=== PATIENT | male | born 1995 | race American Indian/Alaskan Native ===

== ENCOUNTER 2017-03-01 23:38 | Inpatient (IN) | payer MEDICAID ==
[2017-03-01 23:53] VITALS: BMI 27.3
[2017-03-02 00:28] VITALS: O2SAT 97
[2017-03-02 00:37] LABS: BASO # 0.04 K/mm3 (0.0-2.0); BASO % 0.6 % (0.0-3.0); EOS # 0.1 (0.0-0.7); EOS % 1.2 % (1.5-5.0); GRAN # 3.42 (1.4-6.5); GRAN % 50.7 % (50.0-68.0); HEMOGLOBIN 12.9 gm/dL (14.0-18.0); LYMPH # 2.4 (1.2-3.4); LYMPH % 36.2 % (22.0-35.0); MEAN CELL VOLUME 80.1 fL (80.0-105.0); MEAN CORPUSCULAR HEMOGLOBIN 26.8 pg (25.0-35.0); MEAN CORPUSCULAR HGB CONC 33.4 g/dl (31.0-37.0); MEAN PLATELET VOLUME 9.7 fl (7.0-11.0); MONO # 0.8 (0.1-0.6); MONO % 11.3 % (1.0-6.0); PLATELET COUNT 183 10^3/uL (120.0-450.0); RBC 4.82 10^6/uL (3.5-6.1); RED CELL DISTRIBUTION WIDTH 14.7 % (11.5-14.5); WHITE BLOOD COUNT 6.7 10^3/ul (4.5-11.0)
[2017-03-02 00:41] LABS: ALB/GLOB RATIO 1.3 (1.1-1.8); ALBUMIN 4.2 g/dL (3.0-4.8); ALT/SGPT 89 U/L (7-56); AST/SGOT 41 U/L (15-59); BLOOD UREA NITROGEN 17 mg/dL (7-21); GFR AFRICAN-AMERICAN > 60; GFR NON-AFRICAN AMERICAN > 60
[2017-03-02 00:43] LABS: SALICYLATE < 1 mg/dL (2.0-20.0)
--- NOTE | 2017-03-02 00:53 | ED PDOC ---
Arrival/HPI - General Chief Complaint: Psychiatric Evaluation Time Seen by Provider: 03/01/17 23:42 Historian: Patient - History of Present Illness Narrative History of Present Illness (Text): 03/02/17 00:54 A 21 year old male presents to the emergency department with suicidal ideation for the past several weeks. Patients states he wants to jump in front of traffic. Patient is compliant with medications. Denies any homicidal ideation, hallucinations, any physical complaints. Denies smoking, drinking and alcohol use. Time/Duration: Other (several weeks) Symptom Onset: Sudden Symptom Course: Unchanged Activities at Onset: Rest Context: Home Past Medical History - Provider Review Nursing Documentation Reviewed: Yes - Cardiac Hx Cardiac Disorders: No - Pulmonary Hx Respiratory Disorders: No - Neurological Hx Neurological Disorder: No - HEENT Hx HEENT Disorder: No - Renal Hx Renal Disorder: No - Endocrine/Metabolic Hx Endocrine Disorders: No - Hematological/Oncological Hx Blood Disorders: No - Integumentary Hx Dermatological Disorder: No - Musculoskeletal/Rheumatological Hx Musculoskeletal Disorders: No - Gastrointestinal Hx Gastrointestinal Disorders: No - Genitourinary/Gynecological Hx Genitourinary Disorders: No - Psychiatric Hx Psychophysiologic Disorder: No Hx Substance Use: No - Anesthesia Hx Anesthesia: No Family/Social History - Physician Review Nursing Documentation Reviewed: Yes Family/Social History: No Known Family HX Smoking Status: Light Smoker < 10 Cigarettes Daily Hx Alcohol Use: Yes Frequency of alcohol use: Socially Hx Substance Use: No Allergies/Home Meds Allergies/Adverse Reactions: Allergies shellfish derived Allergy (Verified 03/01/17 23:53) RASH Home Medications: Home Meds Medication Instructions Recorded Confirmed Citalopram Hydrobromide [Celexa] 20 mg PO DAILY 03/01/17 03/01/17 Methylphenidate HCl [Concerta] 54 mg PO DAILY 03/01/17 03/01/17 Montelukast [Singulair] 10 mg PO DAILY 03/01/17 03/01/17 Prazosin HCL [Minipress] 10 mg PO DAILY 03/01/17 03/01/17 Risperidone [Risperdal] 2 mg PO DAILY 03/01/17 03/02/17 traZODone [Desyrel] 50 mg PO DAILY 03/01/17 03/02/17 Review of Systems - Physician Review All systems were reviewed & negative as marked: Yes - Review of Systems Constitutional: absent: Fevers Respiratory: absent: SOB Psychiatric: Suicidal Ideation. absent: Other (homicial ideation, hallucinations) Physical Exam Vital Signs Reviewed: Yes Vital Signs Temp Pulse Resp BP Pulse Ox 03/02/17 00:28 97.9 F 69 18 125/50 L 97 Temperature: Afebrile Blood Pressure: Hypotensive Pulse: Regular Respiratory Rate: Normal Appearance: Positive for: Well-Appearing, Non-Toxic, Comfortable Pain Distress: None Mental Status: Positive for: Alert and Oriented X 3 - Systems Exam Head: Present: Atraumatic, Normocephalic Pupils: Present: PERRL Extroacular Muscles: Present: EOMI Conjunctiva: Present: Normal Mouth: Present: Moist Mucous Membranes Neck: Present: Normal Range of Motion Respiratory/Chest: Present: Clear to Auscultation, Good Air Exchange. No: Respiratory Distress, Accessory Muscle Use Cardiovascular: Present: Regular Rate and Rhythm, Normal S1, S2. No: Murmurs Abdomen: Present: Normal Bowel Sounds. No: Tenderness, Distention, Peritoneal Signs Back: Present: Normal Inspection Upper Extremity: Present: Normal Inspection. No: Cyanosis, Edema Lower Extremity: Present: Normal Inspection. No: Edema Neurological: Present: GCS=15, CN II-XII Intact, Speech Normal Skin: Present: Warm, Dry, Normal Color. No: Rashes Psychiatric: Present: Alert, Oriented x 3, Normal Concentration, Suicidal Ideation. No: Homicidal Ideation Medical Decision Making ED Course and Treatment: 03/02/17 00:49 Impression: A 21 year old male with suicidal ideation. Plan: -- EKG -- chest xray -- labs -- Urinalysis -- Reassess and disposition Progress Notes: EKG: Ordered, reviewed, and independently interpreted the EKG. Rate : 76 BPM Rhythm : NSR Interpretation : Normal intervals, normal axis Comparison : No previous EKG for comparison. - Lab Interpretations Lab Results: 03/02/17 00:10 03/02/17 00:10 Lab Results 03/02/17 00:16: Urine Opiates Screen Negative, Urine Methadone Screen Negative, Ur Barbiturates Screen Negative, Ur Phencyclidine Scrn Negative, Ur Amphetamines Screen Negative, U Benzodiazepines Scrn Negative, U Oth Cocaine Metabols Negative, U Cannabinoids Screen Negative 03/02/17 00:16: Urine Color Yellow, Urine Appearance Clear, Urine pH 6.0, Ur Specific [place] >= 1.030, Urine Protein Trace H, Urine Glucose (UA) Negative, Urine Ketones Negative, Urine Blood Negative, Urine Nitrate Negative, Urine Bilirubin Negative, Urine Urobilinogen 1.0 H, Ur Leukocyte Esterase Negative, Urine RBC 0 - 2, Urine WBC 0 - 2, Ur Epithelial Cells 0 - 2, Calcium Oxalate Crystal Trace, Urine Bacteria Mod 03/02/17 00:10: Alcohol, Quantitative < 10 03/02/17 00:10: Salicylates < 1 L, Acetaminophen < 10.0 L 03/02/17 00:10: Sodium 142, Potassium 3.5 L, Chloride 107, Carbon Dioxide 22, Anion Gap 17, BUN 17, Creatinine 0.8, Est GFR ( Amer) > 60, Est GFR (Non- Af Amer) > 60, Random Glucose 90, Calcium 9.0, Total Bilirubin 0.8, AST 41, ALT 89 H, Alkaline Phosphatase 28 L, Total Protein 7.5, Albumin 4.2, Globulin 3.3, Albumin/Globulin Ratio 1.3 03/02/17 00:10: WBC 6.7, RBC 4.82, Hgb 12.9 L, Hct 38.6 L, MCV 80.1, MCH 26.8, MCHC 33.4, RDW 14.7 H, Plt Count 183, MPV 9.7, Gran % 50.7, Lymph % (Auto) 36.2 H, [place] % (Auto) 11.3 H, Eos % (Auto) 1.2 L, Baso % (Auto) 0.6, Gran # 3.42, Lymph # 2.4, [place] # 0.8 H, Eos # 0.1, Baso # 0.04 I have reviewed the lab results: Yes - RAD Interpretation Radiology Orders: 03/01/17 23:56 CHEST ONE VIEW [RAD] Stat - EKG Interpretation Interpreted by ED Physician: Yes Type: 12 lead EKG - Medication Orders Current Medication Orders: Acetaminophen (Tylenol 325mg Tab) 650 mg PO Q4H PRN PRN Reason: Pain, Mild (1-3) Al Hydrox/Mg Hydrox/Simethicone (Maalox Plus 30 Ml) 30 ml PO DAILY PRN PRN Reason: Upset Stomach Magnesium Hydroxide (Milk Of Magnesia) 30 ml PO DAILY PRN PRN Reason: Constipation - Scribe Statement The provider has reviewed the documentation as recorded by the Scribe Susie Steele Provider Scribe Attestation: All medical record entries made by the Scribe were at my direction and personally dictated by me. I have reviewed the chart and agree that the record accurately reflects my personal performance of the history, physical exam, medical decision making, and the department course for this patient. I have also personally directed, reviewed, and agree with the discharge instructions and disposition. Disposition/Present on Arrival - Present on Arrival Any Indicators Present on Arrival: No History of DVT/PE: No History of Uncontrolled Diabetes: No Urinary Catheter: No History of Decub. Ulcer: No History Surgical Site Infection Following: None - Disposition Have Diagnosis and Disposition been Completed?: Yes Diagnosis: Depression Disposition: HOSPITALIZED Disposition Time: 03:30 Condition: STABLE
[2017-03-02 00:58] LABS: URINE BILIRUBIN NEGATIVE (NEGATIVE); URINE BLOOD NEGATIVE (NEGATIVE); URINE GLUCOSE (UA) NEGATIVE (NEGATIVE); URINE LEUKOCYTE ESTERASE NEGATIVE Leu/uL (NEGATIVE); URINE NITRATE NEGATIVE (NEGATIVE); URINE PROTEIN TRACE mg/dL (<30 mg/dL)
[2017-03-02 00:59] LABS: ACETAMINOPHEN < 10.0 ug/ml (10.0-20.0)
[2017-03-02 00:59] LABS: URINE APPEARANCE CLEAR (CLEAR); URINE COLOR YELLOW (YELLOW)
[2017-03-02 01:03] LABS: BARBITURATES, UR NEGATIVE (NEGATIVE); BENZODIAZEPINES, UR NEGATIVE (NEGATIVE); OPIATES, UR NEGATIVE (NEGATIVE); PHENCYCLIDINE, UR NEGATIVE (NEGATIVE)
[2017-03-02 01:22] LABS: URINE BACTERIA MOD (NEG); URINE CALCIUM OXALATE CRYSTALS TRACE /hpf; URINE EPITHELIAL CELLS 0 - 2 /hpf (0-5); URINE RBC 0 - 2 /hpf (0-2); URINE WBC 0 - 2 /hpf (0-6)
[2017-03-02] MEDS ORDERED: Alum-Mag Hydrox-Simethicone Susp (30 mL) PO PRN (04:21)
[2017-03-02] MEDS ORDERED: Magnesium Hydroxide Susp 30 ml UD PO PRN (04:21)
--- NOTE | 2017-03-02 05:10 | PCM.BM ---
<Dhruv Milton - Last Filed: 03/02/17 05:08> Treatment Plan Problems - Problems identified on initial assessmt suicidal ideation Date Initiated: 03/02/17 Time Initiated: 04:00 Assessment reference: NA Status: Active depression Date Initiated: 03/02/17 Time Initiated: 04:00 Assessment reference: HP Status: Referred Treatment assets and liabiliti Patient Assests: cooperative, self-reliant, ADL independent, physically healthy , cognitively intact Patient Liabilities: poor support system, relationship conflicts - Milieu Protocol Maintain good personal hygiene: daily Encourage regular showers, daily Remind patient to perform daily oral care Maintain personal safety: every shift Educate patient to report safety concerns to staff, every shift Monitor environment for contraband/sharps Medication safety: Monitor for expected outcome, potential side effects: every shift, Assess barriers to learning: every shift, Assess readiness for medication education: every shift Family Contact Family involvement: Famliy/SO not involved - Goals for Treatment Patient goals for treatment: "work on my depression" <Casandra eJff - Last Filed: 03/02/17 11:44> - Diagnosis (1) MDD (major depressive disorder) Status: Acute Interventions: 03/02/17 11:45 Psychoeducation Psychopharmacology/adjustment of medications as needed/ monitoring possible side effects Evaluate pt on daily basis Compliance with medications and follow up appointments Suicide and homicide risk assessment and prevention Relapse prevention Reduction of symptoms Improve functional status Family intervention As outpatient: cognitive behavioral therapy/interpersonal psychotherapy/ psychodynamic psychotherapy/problem-solving therapy (2) PTSD (post-traumatic stress disorder) Status: Acute Interventions: 03/02/17 11:45 Psychoeducation Psychopharmacology/adjustment of medications as needed/ monitoring possible side effects Evaluate pt on daily basis Compliance with medications and follow up appointments Suicide and homicide risk assessment and prevention, coping strategies, safety plan Reduction of symptoms Relaxation techniques and breathing exercises Improve functional status Family intervention As outpatient: cognitive behavioral therapy (3) ADHD Status: Acute Interventions: 03/02/17 11:45 Psychoeducation Psychopharmacology/adjustment of medications as needed/ monitoring possible side effects Evaluate pt on daily basis Compliance with medications and follow up appointments Improve functional status Family intervention <Cirilo Brar - Last Filed: 03/04/17 08:36> Discharge/Continuing Care - Education Needs Education Needs: Patient Medication, Patient Diagnosis/Disease Process, Patient Coping Skills, Patient Placement options, Patient Community resources, Patient Aftercare Safety Plan <Nita Ferreira - Last Filed: 03/04/17 09:02> Family Contact Family contact: Patient agrees to contact Discharge/Continuing Care - Education Needs Education Needs: Patient Medication, Patient Diagnosis/Disease Process, Patient Coping Skills, Patient Placement options, Patient Community resources, Patient Aftercare Safety Plan
[2017-03-02 06:42] VITALS: RESP 20
[2017-03-02] MEDS ORDERED: Potassium Chloride 40 mEq/30 ml LIQ UD PO ONE (06:58)
[2017-03-02 07:51] LABS: GLUCOSE,FASTING 85 mg/dL (65-110); HDL CHOLESTEROL 29 mg/dL (29-60)
[2017-03-02 08:02] LABS: LDL CHOLESTEROL 97 mg/dL (0-129)
--- NOTE | 2017-03-02 10:02 | CARD ---
APPROVED REPORT EKG Measurement Heart [id number] <Conclusion> Normal sinus rhythm with sinus arrhythmia Normal ECG
--- NOTE | 2017-03-02 10:52 | CP.PCM.CON ---
<BrendaMerlin - Last Filed: 03/02/17 10:46> History of Present Illness - History of Present Illness History of Present Illness: Medicine Consult Note: 21 M with pmh of depression and anxiety presents with suicidal ideation. Pt states that he lives with his mother at home and "she makes him depressed" specially since there is alot going on at home. He states that he gets thought of running into traffic to end his life but denies acting on it. He states that he is compliant with his psych meds at home. He denies any medical problems. Denies any fever, chills, proctor, dizziness, sob, cp, abd pain, n/v/d. PMH: Depression and anxiety PSH: L eye sx (6yo) Med: refer to [facility] ALL: shellfish SH: lives at home with mom, Denies any smoking, drinking, drugs. FH: Denies Review of Systems - Review of Systems All systems: reviewed and no additional remarkable complaints except (HPI) Past Patient History - Past Social History Smoking Status: Light Smoker < 10 Cigarettes Daily - CARDIAC Hx Cardiac Disorders: No - PULMONARY Hx Respiratory Disorders: No - NEUROLOGICAL Hx Neurological Disorder: No - HEENT Hx HEENT Problems: No - RENAL Hx Chronic Kidney Disease: No - ENDOCRINE/METABOLIC Hx Endocrine Disorders: No - HEMATOLOGICAL/ONCOLOGICAL Hx Blood Disorders: No - INTEGUMENTARY Hx Dermatological Problems: No - MUSCULOSKELETAL/RHEUMATOLOGICAL Hx Musculoskeletal Disorders: No - GASTROINTESTINAL Hx Gastrointestinal Disorders: No - GENITOURINARY/GYNECOLOGICAL Hx Genitourinary Disorders: No - PSYCHIATRIC Hx Psychophysiologic Disorder: No Hx Substance Use: No - SURGICAL HISTORY Hx Surgeries: No - ANESTHESIA Hx Anesthesia: No Meds Allergies/Adverse Reactions: Allergies Allergy/AdvReac Type Severity Reaction Status Date / Time shellfish derived Allergy RASH Verified 03/02/17 05:49 - Medications Medications: Current Medications Acetaminophen (Tylenol 325mg Tab) 650 mg PO Q4H PRN PRN Reason: Pain, Mild (1-3) Al Hydrox/Mg Hydrox/Simethicone (Maalox Plus 30 Ml) 30 ml PO DAILY PRN PRN Reason: Upset Stomach Lorazepam (Ativan) 0.5 mg PO TID PRN; Protocol PRN Reason: Anxiety Magnesium Hydroxide (Milk Of Magnesia) 30 ml PO DAILY PRN PRN Reason: Constipation Montelukast Sodium (Singulair) 10 mg PO HS NANY Risperidone (Risperdal Tab) 1 mg PO AMHS NANY PRN Reason: Protocol Last Admin: 03/02/17 10:14 Dose: 1 mg Ziprasidone (Geodon Cap) 20 mg PO Q6H PRN; Protocol PRN Reason: psychosis/agitation Ziprasidone (Geodon Inj) 20 mg IM Q6H PRN; Protocol PRN Reason: severe agitation Physical Exam - Constitutional Appears: No Acute Distress - Head Exam Head Exam: ATRAUMATIC, NORMAL INSPECTION, NORMOCEPHALIC - Eye Exam Eye Exam: EOMI, Normal appearance, PERRL Pupil Exam: NORMAL ACCOMODATION, PERRL - ENT Exam ENT Exam: Mucous Membranes Moist, Normal Exam - Neck Exam Neck exam: Positive for: Normal Inspection - Respiratory Exam Respiratory Exam: Clear to Auscultation Bilateral, NORMAL BREATHING PATTERN. absent: Wheezes - Cardiovascular Exam Cardiovascular Exam: REGULAR RHYTHM, RRR, +S1, +S2 - GI/Abdominal Exam GI & Abdominal Exam: Normal Bowel Sounds, Soft. absent: Tenderness - Extremities Exam Extremities exam: Positive for: normal inspection. Negative for: calf tenderness - Back Exam Back exam: NORMAL INSPECTION - Neurological Exam Neurological exam: Alert, CN II-XII Intact, Oriented x3 - Psychiatric Exam Psychiatric exam: Depressed, Normal Affect, Normal Mood - Skin Skin Exam: Dry, Intact, Normal Color, Warm Results - Vital Signs Recent Vital Signs: Last Vital Signs Temp 98.1 F 03/02/17 04:00 Pulse 76 03/02/17 04:00 Resp 20 03/02/17 04:00 BP 117/68 03/02/17 04:00 Pulse Ox 97 03/02/17 00:28 - Labs Result Diagrams: 03/02/17 00:10 03/02/17 00:10 Labs: Laboratory Results - last 24 hr 03/02/17 03/02/17 07:00 07:00 Fasting Glucose 85 Triglycerides 106 Cholesterol 146 LDL Cholesterol Direct 97 HDL Cholesterol 29 TSH 3rd Generation 0.44 L Assessment & Plan - Assessment and Plan (Free Text) Assessment: 21 M with pmh of depression and anxiety presents with suicidal ideation. 1. Depression and anxiety - Psych meds and management as per psychiatry 2. Hypokalemia - K of 3.5 - Repleted with Kcl 40meq - Repeat lab 3. Elevated ALT - Repeat labs to see if trending down 4. GI/DVT ppx - Reg diet and ambulating Case and plan was reviewed and discussed in detail with Dr Jain. <Manpreet Jain - Last Filed: 03/02/17 12:43> Meds - Medications Medications: Current Medications Acetaminophen (Tylenol 325mg Tab) 650 mg PO Q4H PRN PRN Reason: Pain, Mild (1-3) Al Hydrox/Mg Hydrox/Simethicone (Maalox Plus 30 Ml) 30 ml PO DAILY PRN PRN Reason: Upset Stomach Lorazepam (Ativan) 0.5 mg PO TID PRN; Protocol PRN Reason: Anxiety Magnesium Hydroxide (Milk Of Magnesia) 30 ml PO DAILY PRN PRN Reason: Constipation Montelukast Sodium (Singulair) 10 mg PO HS NANY Risperidone (Risperdal Tab) 1 mg PO AMHS NANY PRN Reason: Protocol Last Admin: 03/02/17 10:14 Dose: 1 mg Ziprasidone (Geodon Cap) 20 mg PO Q6H PRN; Protocol PRN Reason: psychosis/agitation Ziprasidone (Geodon Inj) 20 mg IM Q6H PRN; Protocol PRN Reason: severe agitation Results - Vital Signs Recent Vital Signs: Last Vital Signs Temp 98.1 F 03/02/17 04:00 Pulse 76 03/02/17 04:00 Resp 20 03/02/17 04:00 BP 117/68 03/02/17 04:00 Pulse Ox 97 03/02/17 00:28 - Labs Result Diagrams: 03/02/17 00:10 03/02/17 11:50 Labs: Laboratory Results - last 24 hr 03/02/17 03/02/17 03/02/17 07:00 07:00 07:00 Sodium Potassium Chloride Carbon Dioxide Anion Gap BUN Creatinine Est GFR ( Amer) Est GFR (Non-Af Amer) Random Glucose Fasting Glucose 85 Calcium Total Bilirubin AST ALT Alkaline Phosphatase Total Protein Albumin Globulin Albumin/Globulin Ratio Triglycerides 106 Cholesterol 146 LDL Cholesterol Direct 97 HDL Cholesterol 29 Free T4 TSH 3rd Generation 0.44 L RPR Nonreactive 03/02/17 03/02/17 10:30 11:50 Sodium 141 Potassium 3.9 Chloride 107 Carbon Dioxide 24 Anion Gap 14 BUN 18 Creatinine 0.8 Est GFR ( Amer) > 60 Est GFR (Non-Af Amer) > 60 Random Glucose 86 Fasting Glucose Calcium 8.9 Total Bilirubin 0.8 AST 47 ALT 86 H Alkaline Phosphatase 28 L Total Protein 7.4 Albumin 4.0 Globulin 3.4 Albumin/Globulin Ratio 1.2 Triglycerides Cholesterol LDL Cholesterol Direct HDL Cholesterol Free T4 1.09 TSH 3rd Generation RPR Attending/Attestation - Attestation I have personally seen and examined this patient.: Yes I have fully participated in the care of the patient.: Yes I have reviewed all pertinent clinical information: Yes Notes (Text): 03/02/17 12:34 MEDICAL CONSULTATION 21 year old male with past medical history of depression and PTSD who presented with complaint of depressed mood and suicidal ideations. Continue with management as per psychiatrist. Labs revealed potassium of 3.5 which was repleted this morning with repeat potassium of 3.9. ALT was also mildly elevated at 89. He denies any alcohol or substance abuse. He denies any abdominal pain. Hepatitis panel is ordered. If it is positive he can be referred to [facility] hepatitis clinic. Otherwise we have recommended to follow up repeat LFTs as outpatient. TSH was mildly low at 0.44. Free T4 is normal. Recommended to repeat TFTs in 4 -[address] Jeff for allowing us to participate in the care of this patient. Please re-consult as needed. Manpreet Jain MD Hospitalist.
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
[2017-03-02 12:03] LABS: ALB/GLOB RATIO 1.2 (1.1-1.8); ALT/SGPT 86 U/L (7-56); AST/SGOT 47 U/L (15-59); BLOOD UREA NITROGEN 18 mg/dL (7-21); CALCIUM 8.9 mg/dL (8.4-10.5); GFR AFRICAN-AMERICAN > 60; GFR NON-AFRICAN AMERICAN > 60
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
[2017-03-04 06:43] VITALS: TEMP 97.4
[2017-03-04 08:19] LABS: HEPATITIS B SURFACE AG NEGATIVE (NEGATIVE)
[2017-03-04 08:24] LABS: HEPATITIS A IGM NEGATIVE (NEGATIVE)
[2017-03-04 08:25] LABS: HEPATITIS B CORE AB NEGATIVE (NEGATIVE)
[2017-03-04 08:35] LABS: HEPATITIS C ANTIBODY NEGATIVE (NEGATIVE)
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
[2017-03-04 15:49] VITALS: BP 103/57; PULSE 67
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
--- NOTE | 2017-03-05 20:37 | RAD ---
PROCEDURE: CHEST RADIOGRAPH, 1 VIEW HISTORY: Rule out infiltrate COMPARISON: None available. FINDINGS: LUNGS: Clear. PLEURA: No pneumothorax or pleural fluid seen. CARDIOVASCULAR: Mild cardiomegaly OSSEOUS STRUCTURES: No significant abnormalities. VISUALIZED UPPER ABDOMEN: Normal. OTHER FINDINGS: None. IMPRESSION: No active disease.
== END 2017-03-04 18:45 | disposition left against medical advice (07) | DRG 426 ==
LOC: ED 23:38 → ERH 03-02 03:19 → PSYC 03-02 03:48
PROVIDERS: ADMIT Psychiatry & Neurology Psychiatry; ATTEND Psychiatry & Neurology Psychiatry
PROC: GZ3ZZZZ Medication Management (ICD-10-PCS; principal; 2017-03-02)
DX: F32.9 Major depressive disorder, single episode, unspecified (principal); R45.851 Suicidal ideations; E87.6 Hypokalemia; F43.10 Post-traumatic stress disorder, unspecified; F90.9 Attention-deficit hyperactivity disorder, unspecified type; G47.00 Insomnia, unspecified; F41.9 Anxiety disorder, unspecified; R74.8 Abnormal levels of other serum enzymes